=== PATIENT | female | born 1935 | race Two or more races ===

== ENCOUNTER 2022-01-04 05:01 | Inpatient (IN) | payer MEDICARE, OTHER ==
[~2022-01-04] VITALS: Ht 165.1 cm; Wt 96.6 kg
--- NOTE | 2022-01-04 05:20 | NUR ---
BIBRA 88 FROM HOME C/O WEAKNESS. AFTER USING TOILET FELL ON KNEES. -TRAUMA - LOC, MAJOR DONOR COORDINATOR BS 386, SATS 88% IN RA. PATIENT IS AAOX4. ABLE TO MAKE NEEDS KNOWN. ATTACHED TO NC AT 3LPM SATS AT 98%. PATIENT -CP, WITH SHORTNESS OF BREATH. COOPERATIVE. ATTACHED TO MONITOR. VITALS CHECKED.
--- NOTE | 2022-01-04 05:31 | NUR ---
POC BS 309; DR. LAW CASEY AWARE
--- NOTE | 2022-01-04 05:41 | NUR ---
SURVEYING OR SPATIAL SCIENCE TECHNICIAN AT PT'S BEDSIDE
[2022-01-04 06:01] LABS: BASOPHILS # (AUTO) 0.1 K/uL (0.0-0.2); BASOPHILS % (AUTO) 0.5 % (0.0-2.0); EOSINOPHILS % (AUTO) 0.8 % (0.0-6.0); HEMATOCRIT 33 % (33-45); HEMOGLOBIN 10.2 g/dL (11.5-14.8); LYMPHOCYTES # (AUTO) 1.9 K/uL (0.8-4.8); LYMPHOCYTES % (AUTO) 10.8 % (20.0-44.0); MEAN CORPUSCULAR HGB CONC 31 g/dl (31.0-36.0); MEAN CORPUSCULAR VOLUME 81 fL (82-100); MONOCYTES # (AUTO) 0.7 K/uL (0.1-1.30); MONOCYTES % (AUTO) 3.8 % (2.0-12.0); NEUTROPHILS # (AUTO) 14.8 K/uL (1.8-8.9); NEUTROPHILS % (AUTO) 84.1 % (43.0-81.0); PLATELET COUNT (AUTO) 272 K/uL (150-450); RED BLOOD CELL COUNT(AUTO) 4.09 MIL/uL (4.0-5.2); WHITE BLOOD COUNT (AUTO) 17.6 K/uL (4.3-11.0)
--- NOTE | 2022-01-04 06:01 | NUR ---
URINE COLLECTED AND SENT TO LAB
--- NOTE | 2022-01-04 06:06 | NUR ---
POLISHING MACHINE OPERATOR HELPER AT PT'S BEDSIDE
--- NOTE | 2022-01-04 06:10 | NUR ---
CXR DONE AT BEDSIDE
[2022-01-04 06:12] LABS: CALCIUM, SERUM 8.4 mg/dL (8.5-10.1); CARBON DIOXIDE 33 mmol/L (21-32); CHLORIDE 93 mmol/L (98-107); CREATININE 2.4 mg/dL (0.6-1.3); GLUCOSE 322 mg/dL (74-106); POTASSIUM 4.9 mmol/L (3.5-5.1); SODIUM SERUM 129 mmol/L (136-145); UREA NITROGEN, BLOOD 56 mg/dL (7-18)
[2022-01-04 06:17] LABS: ALANINE AMINOTRANSFERASE 18 U/L (12-78); ALBUMIN 2.6 g/dL (3.4-5.0); ALKALINE PHOSPHATASE 77 U/L (46-116); ASPARTATE AMINOTRANSFERASE 15 U/L (15-37); BILIRUBIN,DIRECT 0.1 mg/dL (0.0-0.2); BILIRUBIN,TOTAL 0.4 mg/dL (0.2-1.0); TOTAL PROTEIN, SERUM 6.2 g/dL (6.4-8.2)
--- NOTE | 2022-01-04 06:17 | NUR ---
COVID ANTIGEN AND MRSA SWAB COLLECTED AND SENT TO LAB
--- NOTE | 2022-01-04 06:22 | NUR ---
CRITICAL LAB TROP 105; DR. GILMA CASEY AWARE
[2022-01-04] MEDS ORDERED: BUMETANIDE INJ 0.25 MG/ML VIAL ONE (06:54)
[2022-01-04] MEDS ORDERED: ASPIRIN 81 MG TAB.CHEW ONE (06:54)
[2022-01-04] MEDS ORDERED: BUMETANIDE INJ 0.25 MG/ML VIAL IV ONE (07:00)
[2022-01-04] MEDS ORDERED: ASPIRIN 81 MG TAB.CHEW PO ONE (07:00)
[2022-01-04 07:02] LABS: BILIRUBIN,URINE NEGATIVE (NEGATIVE); COLOR,URINE YELLOW (YELLOW); LEUKOCYTE ESTERASE ,URINE NEGATIVE (NEGATIVE); NITRITE, URINE NEGATIVE (NEGATIVE); PH,URINE 5.5 (5.0-8.0); PROTEIN,URINE NEGATIVE (NEGATIVE); UGLUCOSE NEGATIVE (NEGATIVE); UROBILINOGEN,URINE 0.2 EU/dL (0.2)
--- NOTE | 2022-01-04 07:11 | NUR ---
IV CANNULA G20 INSERTED ON LEFT FA. MEDS GIVEN
--- NOTE | 2022-01-04 08:22 | NUR ---
GOT BED 104
[2022-01-04] MEDS ORDERED: LINA290C PO (09:11)
[2022-01-04] MEDS ORDERED: PREG100C PO (09:11)
[2022-01-04] MEDS ORDERED: CARV25TA2 PO (09:11)
[2022-01-04] MEDS ORDERED: SIMV-49 PO (09:11)
[2022-01-04] MEDS ORDERED: ASPI-1420 PO (09:11)
[2022-01-04] MEDS ORDERED: ZOLP12.542 PO (09:11)
[2022-01-04] MEDS ORDERED: ESOM40CA PO (09:11)
[2022-01-04] MEDS ORDERED: BUME2TAB7 PO (09:11)
[2022-01-04] MEDS ORDERED: OLME40TA18 PO (09:11)
[2022-01-04] MEDS ORDERED: EMPA25TA PO (09:13)
[2022-01-04] MEDS ORDERED: HEPARIN INFUSION/D5W 500 ML IV PRN (10:00)
[2022-01-04] MEDS: ASPIRIN EC 81 MG TABLET.DR PO SCH (10:00)
[2022-01-04] MEDS ORDERED: LINACLOTIDE 290 MG PO SCH (10:00)
[2022-01-04 10:35] LABS: THYROID STIMULATING HORMONE 1.546 uIU/mL (0.358-3.74)
[2022-01-04 11:00] VITALS: BP 125/71
--- NOTE | 2022-01-04 11:00 | NUR ---
RN NOTE PATIENT IS ALERT AND ORIENTED X3. PATIENT IS FARSI SPEAKING. PATIENT ON ROOM AIR TOLERATING ABOVE 95%. IV INTACT, PATENT AND FLUSHING WELL. PATIENT HAS NORTON CATHETER. YELLOW COLOR DRAINING TO DRAVITY. PATIENT IS ABLE TO MAKE NEEDS KNOWN. NO SIGNS OF PAIN OR DISCOMFORT. ALL SAFETY MEASURES IN PLACE. CALL LIGHT WITHIN REACH. BED LOCKED AT LOWEST POSITION. BED ALARM ON. SIDE RAILS UP X2.
[2022-01-04 12:00] VITALS: BP 133/65
--- NOTE | 2022-01-04 12:00 | NUR ---
FAMILY AT BEDSIDE
[2022-01-04] MEDS: IV NS 0.9% 1,000 ML IV PRN (12:07)
[2022-01-04] MEDS ORDERED: HEPARIN SODIUM, PORCINE 5000 UNITS/1 ML VIAL IV ONE (13:00)
[2022-01-04] MEDS ORDERED: DEXTROSE 50%-WATER 50 ML DISP.SYRIN IV PRN (13:30)
[2022-01-04] MEDS: PREGABALIN 100 MG CAPSULE PO SCH ×2 (13:54→17:32)
[2022-01-04] MEDS: CARVEDILOL 12.5 MG TABLET PO SCH ×2 (13:55→17:35)
[2022-01-04 16:00] VITALS: BP 138/61
--- NOTE | 2022-01-04 17:00 | NUR ---
carlos note patient received dialysis. drained 500 Addendum: 01/04/22 at 2101 by FOREIGN FABIAN RN joce archer pt
[2022-01-04] MEDS ORDERED: SIMVASTATIN 20 MG TABLET PO SCH (18:00)
[2022-01-04] MEDS: BLOOD SUGAR DIAGNOSTIC 1 EACH STRIP IN SCH ×2 (19:13→22:24)
--- NOTE | 2022-01-04 19:30 | NUR ---
RN CLOSING NOTE PATIENT IS ALERT AND ORIENTED X3. PATIENT IS FARSI SPEAKING. PATIENT ON ROOM AIR TOLERATING ABOVE 96%. IV INTACT, PATENT AND FLUSHING WELL. RUNNING NORMAL SALINE AND HEPARIN DRIP. PATIENT HAS NORTON CATHETER. YELLOW COLOR DRAINING TO GRAVITY. PATIENT IS ABLE TO MAKE NEEDS KNOWN. ALL NEEDS MET. NO SIGNS OF PAIN OR DISCOMFORT. ALL SAFETY MEASURES IN PLACE. CALL LIGHT WITHIN REACH. BED LOCKED AT LOWEST POSITION. BED ALARM ON. SIDE RAILS UP X2.
--- NOTE | 2022-01-04 20:00 | NUR ---
RN NOTE, PATIENT AWAKE A/O X3, X3, ON ROOM AIR, NO SOB/ACUTE DISTRESS NOTED AT THIS TIME, NSR IN TELE MONITOR, PATIENT ON IVF ORDERED, HEPARIN DRIP INFUSING AT 1200 UNITS/HR AWAITING FOR PTT RESULTS, PATIENT WITH DISLODGED IV LINE, WILL INSERT IV LINE JOHN PAUL, PATIENT IS ABLE TO MAKE NEEDS KNOWN, NO SIGNS OF PAIN OR DISCOMFORT, ALL SAFETY MEASURES MAINTAINED, CALL LIGHT WITHIN REACH, BED LOCKED AND LOWEST POSITION, BED ALARM ON. SIDE RAILS UP X2, WILL CONTINUE TO MONITOR CLOSELY.
[2022-01-04] MEDS: INSULIN REGULAR, HUMAN 100 UNIT/ML 3 ML VIAL SQ PRN (22:25)
[2022-01-04] MEDS: ACETAMINOPHEN 325 MG TABLET PO PRN (23:15)
[2022-01-04] MEDS: TEMAZEPAM 15 MG CAPSULE PO PRN (23:15)
[2022-01-05 04:00] VITALS: BP 116/56
[2022-01-05] MEDS: ACETAMINOPHEN 325 MG TABLET PO PRN ×2 (04:55→16:04)
[2022-01-05 06:01] LABS: BASOPHILS # (AUTO) 0.1 K/uL (0.0-0.2); BASOPHILS % (AUTO) 0.6 % (0.0-2.0); EOSINOPHILS % (AUTO) 0.8 % (0.0-6.0); HEMATOCRIT 34 % (33-45); HEMOGLOBIN 10.5 g/dL (11.5-14.8); LYMPHOCYTES # (AUTO) 1.7 K/uL (0.8-4.8); LYMPHOCYTES % (AUTO) 8.9 % (20.0-44.0); MEAN CORPUSCULAR HGB CONC 31 g/dl (31.0-36.0); MEAN CORPUSCULAR VOLUME 81 fL (82-100); MONOCYTES # (AUTO) 0.5 K/uL (0.1-1.30); MONOCYTES % (AUTO) 2.5 % (2.0-12.0); NEUTROPHILS # (AUTO) 16.9 K/uL (1.8-8.9); NEUTROPHILS % (AUTO) 87.2 % (43.0-81.0); PLATELET COUNT (AUTO) 258 K/uL (150-450); RED BLOOD CELL COUNT(AUTO) 4.14 MIL/uL (4.0-5.2); WHITE BLOOD COUNT (AUTO) 19.4 K/uL (4.3-11.0)
[2022-01-05 06:10] LABS: ALANINE AMINOTRANSFERASE 13 U/L (12-78); ALBUMIN 2.4 g/dL (3.4-5.0); ALKALINE PHOSPHATASE 64 U/L (46-116); ASPARTATE AMINOTRANSFERASE 18 U/L (15-37); BILIRUBIN,TOTAL 0.3 mg/dL (0.2-1.0); CALCIUM, SERUM 8.5 mg/dL (8.5-10.1); CARBON DIOXIDE 34 mmol/L (21-32); CHLORIDE 100 mmol/L (98-107); CREATININE 1.5 mg/dL (0.6-1.3); GLUCOSE 199 mg/dL (74-106); MAGNESIUM 2.3 mg/dL (1.8-2.4); POTASSIUM 5.2 mmol/L (3.5-5.1); SODIUM SERUM 136 mmol/L (136-145); TOTAL PROTEIN, SERUM 6.2 g/dL (6.4-8.2); UREA NITROGEN, BLOOD 39 mg/dL (7-18)
--- NOTE | 2022-01-05 06:26 | NUR ---
RN NOTE, PATIENT ASLEEP, AROUSES TO VERBAL STIMULI, ON ROOM AIR, NO SOB/ACUTE DISTRESS DURING THE NIGHT, NSR IN TELE MONITOR, CONT ON HEPARIN DRIP INFUSING AT 1200 UNITS/HR NO CHANGE ACCORDING TO LAST NIGHT PTT, TYLENOL ADMINISTER PRN X2 DURING THE NIGHT FOR PAIN, OTHERWISE NO SIGNIFICANT CHANGE IN CONDITION, , ALL SAFETY MEASURES MAINTAINED, CALL LIGHT WITHIN REACH, BED LOCKED AND LOWEST POSITION, BED ALARM ON. SIDE RAILS UP X2, WILL ENDORSE CONTINUITY OF ACRE TO ONCOMING NURSE.
[2022-01-05] MEDS: ENOXAPARIN SODIUM 30 MG/0.3 ML DISP.SYRIN SQ SCH (07:30)
[2022-01-05] MEDS: INSULIN REGULAR, HUMAN 100 UNIT/ML 3 ML VIAL SQ PRN ×4 (07:54→22:28)
[2022-01-05] MEDS: BLOOD SUGAR DIAGNOSTIC 1 EACH STRIP IN SCH ×4 (07:56→22:23)
--- NOTE | 2022-01-05 08:00 | NUR ---
CHECKMAN NOTES PATIENT IS IN THE BED. A&0 X4. FAMILY AT BEDSIDE. ON ROOM AIR. NO SOB NOTED. ON TELEMONITOR SR HEART RATE 72. PATIENT ON HEPARIN DRIP ORDERED. RIGHT IV 20G, FLUSHED AND INTACTED WELL. BOTH LEGS SWOLLEN. LEGS RAISED AND ELEVATED ON PILLOW. ATE BREAKFAST, ABLE TO EAT SELF. WILL CONTINUE TO MONITOR.
[2022-01-05] MEDS: PREGABALIN 100 MG CAPSULE PO SCH ×2 (08:10→16:04)
[2022-01-05] MEDS: ASPIRIN EC 81 MG TABLET.DR PO SCH (08:10)
[2022-01-05] MEDS: PANTOPRAZOLE 40 MG TABLET.DR PO SCH (08:10)
[2022-01-05] MEDS: CARVEDILOL 12.5 MG TABLET PO SCH ×2 (08:11→16:05)
[2022-01-05] MEDS: ATORVASTATIN 40 MG TABLET PO SCH (08:13)
--- NOTE | 2022-01-05 08:14 | NUR ---
telephone technician note called to dr bullock notified that patient on heparin drip ,lovenox and asa , ordered ok to d stop heparin drip and start Lovenox tomorrow, order carried out
--- NOTE | 2022-01-05 09:38 | NUR ---
telephone clerk note per family and patient wants pt lay called to dr Jarvis obtained order for pt
[2022-01-05 10:18] VITALS: BP 128/47
[2022-01-05] MEDS ORDERED: SODIUM POLYSTYRENE SULFONATE 15 G/60 ML BOTTLE PO ONE (11:00)
--- NOTE | 2022-01-05 11:19 | NUR ---
SKIFF OPERATOR NOTE PT DONE ABLE TO ABLE WITH WALKER, ABLE TO SIT ON CHAIR
--- NOTE | 2022-01-05 11:45 | NUR ---
CAREER TECHNICAL SUPERVISOR NOTE DR SOLANO AT BEDSIDE, AWARE BOTH LEGS SWELLING,WILL CONT TO ELEVATE LEGS ON PILLOW ,OK ON IVF ORDERED
[2022-01-05 12:21] VITALS: BP 111/47
[2022-01-05] MEDS: IV NS 0.9% 1,000 ML IV PRN (13:12)
--- NOTE | 2022-01-05 14:58 | NUR ---
MANAGER CARDIAC CATH NOTES ASSISTED TO BR, ABLE TO MAKE BM ,KEEP CLEAN DRY
--- NOTE | 2022-01-05 16:00 | NUR ---
CASSEROLE PREPARER NOTE ORTHOSTATIC BP DONE SUPINE 139/97 ,SITTING 140/55, UNABLE TO STAND UP PATIENT FEELING WEEK AND TIRED
[2022-01-05 16:20] VITALS: BP 139/97
--- NOTE | 2022-01-05 16:47 | NUR ---
BLACKJACK SUPERVISOR NOTE C\O HEADACHE ,TYLENOL PO GIVEN WILL MONITOR DAUGHTER AT BEDSIDE, SPOKE WITH DAUGHTER ABOUT MEDICATIONS FROM HOME TO BRING LINZESS , STATED THAT WILL BRING TOMORROW WHEN HAVE CHANCE
--- NOTE | 2022-01-05 18:32 | NUR ---
LAST GREASER NOTE FAMILY AT BEDSIDE, HAVING DINNER ,NO SOB NOTED AT THIS TIME, ON 2L NC AT THIS TIME, ,CONT ON IVF ORDERED, BED IN LOWEST AND LOCKED POSITION,WILL CONT TO MONITOR
--- NOTE | 2022-01-05 19:15 | NUR ---
RN OPEN TELE NOTE: ALERT AND ORIENTED TIMES FOUR. ON 02 2LPM NC. SATING AT 97 %. TELE MONITOR WITH READING OF SINUS RHYTHM [id number]. IV ON RIGHT FOREARM PATENT WITH NO S/S OF COMPLICATIONS. IVF RUNNING AT NS 70 ML/HR. DENIES PAIN OR DISCOMFORT. DAUGHTER AT BEDSIDE. HOB ELEVATED SEMI-FOWLERS POSITION. BED IN LOW POSITION, BED IS LOCKED, BED EXIT ALARM ON . BILATERAL HALF SIDE RAILS UP X2. CALL LIGHT IN REACH.
[2022-01-05 20:00] VITALS: BP 114/47
--- NOTE | 2022-01-05 20:00 | NUR ---
RN NOTE: ADDY PRYOR FLATBED TRUCK DRIVER NOTIFIED WBC 19.5 WITH ORDERS FOR BLOOD CULTURES.
[2022-01-05] MEDS: TEMAZEPAM 15 MG CAPSULE PO PRN (20:44)
[2022-01-06] VITALS: BP 112/47
[2022-01-06 04:00] VITALS: BP 110/65
--- NOTE | 2022-01-06 04:26 | NUR ---
RN NOTE: PATIENT NOTED WITH IV OCCLUDED, NOT PATENT, AND ATTEMPTED TO INSERT PERIPHERAL IV WITH NO SUCCESS PATIENT REFUSING IV AT THIS TIME, IV ON RIGHT FOREARM REMOVED. ADDY PRYOR INTEGRATED MARKETING SPECIALIST NOTIFED WITH NEW ORDER FOR MIDLINE.
[2022-01-06 05:56] LABS: BASOPHILS # (AUTO) 0.1 K/uL (0.0-0.2); BASOPHILS % (AUTO) 0.4 % (0.0-2.0); HEMATOCRIT 31 % (33-45); HEMOGLOBIN 9.7 g/dL (11.5-14.8); LYMPHOCYTES # (AUTO) 1.2 K/uL (0.8-4.8); LYMPHOCYTES % (AUTO) 7.9 % (20.0-44.0); MEAN CORPUSCULAR HGB CONC 31 g/dl (31.0-36.0); MEAN CORPUSCULAR VOLUME 81 fL (82-100); MONOCYTES # (AUTO) 0.6 K/uL (0.1-1.30); MONOCYTES % (AUTO) 3.9 % (2.0-12.0); NEUTROPHILS # (AUTO) 13.5 K/uL (1.8-8.9); NEUTROPHILS % (AUTO) 86.8 % (43.0-81.0); PLATELET COUNT (AUTO) 260 K/uL (150-450); RED BLOOD CELL COUNT(AUTO) 3.82 MIL/uL (4.0-5.2); WHITE BLOOD COUNT (AUTO) 15.5 K/uL (4.3-11.0)
[2022-01-06 06:21] LABS: ALBUMIN 2.3 g/dL (3.4-5.0); BILIRUBIN,TOTAL 0.3 mg/dL (0.2-1.0); CALCIUM, SERUM 8.4 mg/dL (8.5-10.1); CREATININE 1.3 mg/dL (0.6-1.3); MAGNESIUM 2.3 mg/dL (1.8-2.4); PHOSPHORUS 3.5 mg/dL (2.5-4.9); POTASSIUM 4.6 mmol/L (3.5-5.1); TOTAL PROTEIN, SERUM 5.9 g/dL (6.4-8.2)
--- NOTE | 2022-01-06 07:00 | NUR ---
RN CLOSING TELE NOTE: ALERT AND ORIENTED TIMES FOUR. ON 02 2LPM NC. SATING AT 100 %. TELE MONITOR WITH READING OF SINUS RHYTHM LEFT [id number]. PENDING MIDLINE INSERTION. HOB ELEVATED SEMI-FOWLERS POSITION. BED IN LOW POSITION, BED IS LOCKED, BED EXIT ALARM ON . BILATERAL HALF SIDE RAILS UP X2. CALL LIGHT IN REACH.
--- NOTE | 2022-01-06 07:36 | NUR ---
RN OPENING NOTE PATIENT IN ROOM ALERT AND ORIENTED TIMES FOUR. ON 02 2LPM NC. SATING AT 100 %. TELE MONITOR WITH READING OF SINUS RHYTHM LEFT BBB 70S-80'S. PENDING MIDLINE INSERTION. HOB ELEVATED SEMI-FOWLERS POSITION. BED IN LOW POSITION, BED IS LOCKED, BED EXIT ALARM ON . BILATERAL HALF SIDE RAILS UP X2. CALL LIGHT IN REACH. WILL CONTINUE PLAN OF CARE AND ANTICIPATE NEEDS.
[2022-01-06] MEDS: BLOOD SUGAR DIAGNOSTIC 1 EACH STRIP IN SCH ×2 (07:56→12:02)
[2022-01-06] MEDS: PANTOPRAZOLE 40 MG TABLET.DR PO SCH (07:56)
[2022-01-06] MEDS ORDERED: LINACLOTIDE 290 MG PO SCH (09:00)
[2022-01-06 09:35] VITALS: BP 153/58
[2022-01-06] MEDS: ASPIRIN EC 81 MG TABLET.DR PO SCH (09:49)
[2022-01-06] MEDS: ATORVASTATIN 40 MG TABLET PO SCH (09:49)
[2022-01-06] MEDS: CARVEDILOL 12.5 MG TABLET PO SCH (09:50)
[2022-01-06] MEDS: PREGABALIN 100 MG CAPSULE PO SCH (09:50)
[2022-01-06] MEDS: ENOXAPARIN SODIUM 30 MG/0.3 ML DISP.SYRIN SQ SCH (09:54)
[2022-01-06] MEDS ORDERED: BUME1TAB8 PO (10:05)
[2022-01-06 12:00] VITALS: BP 119/63
[2022-01-06] MEDS: INSULIN REGULAR, HUMAN 100 UNIT/ML 3 ML VIAL SQ PRN (12:13)
--- NOTE | 2022-01-06 13:45 | NUR ---
PATIENT HAS BEEN DISCHARGED HOME. IV ACCESS REMOVED, HOSPITAL ID BAND REMOVED. DISCHARGE INSTRUCTIONS AND PATIENT BELONGINGS LIST SIGNED. PATIENT WAS WHEELED TO [facility] WHERE SHE LEFT THE FACILITY IN A PRIVATE VEHICLE WITH HER FAMILY MEMBER IN STABLE CONDITION.
== END 2022-01-06 13:18 | disposition home or self-care (01) | DRG 814 ==
LOC: ER 05:01 → TELE1 08:33
PROVIDERS: ADMIT Nurse Practitioner Acute Care; ATTEND Nurse Practitioner Acute Care
DX: D75.9 Disease of blood and blood-forming organs, unspecified (principal); I21.A1 Myocardial infarction type 2; N17.0 Acute kidney failure with tubular necrosis; E87.1 Hypo-osmolality and hyponatremia; E44.0 Moderate protein-calorie malnutrition; I13.0 Hypertensive heart and chronic kidney disease with heart failure and stage 1 through stage 4 chronic kidney disease, or unspecified chronic kidney disease; D68.59 Other primary thrombophilia; M79.7 Fibromyalgia; Z20.822 Contact with and (suspected) exposure to COVID-19; D50.9 Iron deficiency anemia, unspecified; N18.9 Chronic kidney disease, unspecified; E78.5 Hyperlipidemia, unspecified; Z79.82 Long term (current) use of aspirin; Z79.899 Other long term (current) drug therapy; D72.829 Elevated white blood cell count, unspecified; Z66 Do not resuscitate; E86.1 Hypovolemia; E11.22 Type 2 diabetes mellitus with diabetic chronic kidney disease; E11.65 Type 2 diabetes mellitus with hyperglycemia; E88.09 Other disorders of plasma-protein metabolism, not elsewhere classified; E66.01 Morbid (severe) obesity due to excess calories; Z68.35 Body mass index [BMI] 35.0-35.9, adult; W18.11XA Fall from or off toilet without subsequent striking against object, initial encounter; Y92.002 Bathroom of unspecified non-institutional (private) residence as the place of occurrence of the external cause; D56.9 Thalassemia, unspecified; E87.5 Hyperkalemia; Z88.1 Allergy status to other antibiotic agents; I50.9 Heart failure, unspecified
CPT/HCPCS: 36415; 71045-TC; 76770-TC; 80048-TC; 80053-TC; 80061-TC; 80076-TC; 82728-TC; 82962-TC; 83540-TC; 83735-TC; 83880; 84100-TC; 84439-TC; 84443-TC; 84484-TC; 85025-TC; 85730-TC; 87040-TC; 87081-TC; 93307-TC; 93970-TC; 94799-TC; 97110-TC; 97116-TC; 97530-TC; C9803; G0378; J1644; J1650; J1815; J3490; J7030; J7050